=== PATIENT | male | born 1990 | race Caucasian/White ===

== ENCOUNTER 2017-05-27 11:22 | Emergency (ER) | payer OTHER ==
--- NOTE | 2017-05-27 12:08 | XRAY Report ---
EXAM: CHEST RADIOGRAPHY EXAM DATE: 05/27/2017 11:57 AM. CLINICAL HISTORY: Chest pain, worse with deep inspiration. COMPARISON: None. TECHNIQUE: 2 views. FINDINGS: Lungs/Pleura: No focal opacities evident. No pleural effusion. No pneumothorax. Normal volumes. Mediastinum: Heart and mediastinal contours are unremarkable. Other: Negative bony structures IMPRESSION: Negative 2-view chest radiography. [facility] Referring Provider Line: [phone] SITE ID: [id number]
--- NOTE | 2017-05-27 13:14 | ED Physician Documentation ---
History of Present Illness - Stated complaint Stated Complaint: CHEST PX/SOA - Chief complaint Chief Complaint: Cardiac - Additonal information Additional information: hx from pt 26 male onset L sided focal cp this morning 8 AM was just walking around hurts to move breathe and palpate no fever or cough non smoker no leg swelling no recent travel Review of Systems Constitutional: denies: Fever Cardiac: reports: Chest pain / pressure Respiratory: denies: Dyspnea, Cough Musculoskeletal: denies: Extremity pain, Extremity swelling Endocrine: denies: Easy bruising / bleeding Immunocompromised: denies: Immunocompromised PD PAST MEDICAL HISTORY - Past Medical History Respiratory: Asthma - Past Surgical History Past Surgical History: No - Present Medications Home Medications: Ambulatory Orders Medication Instructions Recorded Confirmed Ibuprofen [Motrin] 400 mg PO Q6H PRN #30 tablet 05/27/17 Lidocaine Patch 5% [Lidoderm Patch] 1 each TOP DAILY PRN #10 patch 05/27/17 - Allergies Allergies/Adverse Reactions: Allergies Allergy/AdvReac Type Severity Reaction Status Date / Time Penicillins Allergy Rash Verified 05/27/17 11:44 - Social History Does the pt smoke?: No Smoking Status: Never smoker Does the pt drink ETOH?: No Does the pt have substance abuse?: Yes Substance Use and Type: Marijuana - Immunizations Immunizations are current?: Yes PD ED PE NORMAL - Vitals Vital signs reviewed: Yes - General General: Alert and oriented X 3 - Neck Neck: Supple, no meningeal sign - Cardiac Cardiac: RRR - Respiratory Respiratory: No respiratory distress, Clear bilaterally, Other (TTP ant upper left chest - no rash) - Abdomen Abdomen: Soft, Non tender - Derm Derm: Normal color - Extremities Extremities: No edema, No calf tenderness / cord - Neuro Neuro: Alert and oriented X 3 Results - Vitals Vitals: Vital Signs - 24 hr 05/27/17 11:41 Temperature 37.1 C Heart Rate 85 Respiratory 18 Rate Blood Pressure 122/71 O2 Saturation 98 Oxygen O2 Source Room air - EKG (time done) 1136 Rate: Rate (enter#) Rhythm: NSR Caret: Normal Intervals: Normal [place] Ischemia: Normal ST segments - Rads (name of study) CXR Radiology: See rad report (NACPD) PD MEDICAL DECISION MAKING - ED course ED course: PERC neg Departure - Departure Disposition: 01 Home, Self Care Clinical Impression: Chest wall pain Condition: Good Instructions: ED Chest Pain Costochondritis Prescriptions: Lidocaine Patch 5% [Lidoderm Patch] 1 each TOP DAILY PRN #10 patch PRN Reason: Pain Ibuprofen [Motrin] 400 mg PO Q6H PRN #30 tablet PRN Reason: Pain Comments: The xray is fine - no collapsed lung, normal size heart and aorta The EKG does not suggest a heart attack Since you are so tender to palpate the chest wall, I think this pain is coming fro the muscles and bones of your chest wall - not a heart or lung problem. I recommend using the lidocaine patches (one patch up to 12 hr a day) and an anti-inflammatory such as motrin Follow up with your PMD if not better Return if worse
[2017-05-27] MEDS ORDERED: LIDOCAINE PATCH 5% TOP ONE (13:46)
[2017-05-27] MEDS ORDERED: IBUPROFEN 800 MG TABLET PO ONE (13:47)
[2017-05-27] MEDS: IBUPROFEN 800 MG TABLET PO STA (13:48)
[2017-05-27] MEDS: LIDOCAINE PATCH 5% TOP STA (13:49)
[2017-05-27 13:51] VITALS: BP 124/90
[2017-05-27] MEDS: IBUPROFEN 400 MG TABLET PO STA (13:55)
== END 2017-05-27 14:10 | disposition home or self-care (01) ==
LOC: ED 11:22
DX: R07.89 Other chest pain (principal); J45.909 Unspecified asthma, uncomplicated
CPT/HCPCS: 71020; 93005; 99283; 99284; A9270

== ENCOUNTER 2017-09-07 08:53 | Emergency (ER) | payer OTHER ==
--- NOTE | 2017-09-07 10:00 | ED Physician Documentation ---
PD HPI HEENT - Stated complaint Stated Complaint: TOOTH PX - Chief complaint Chief Complaint: Heent - History obtained from History obtained from: Patient - History of Present Illness Timing - onset: How many days ago (few) Timing - duration: Days (few) Timing - details: Gradual onset, Still present Location: Tooth (had pain at left lower tooth and then it developed small bubble at gum today.) Associated symptoms: No: Fever Similar symptoms before: Has not had sx before Recently seen: Not recently seen Review of Systems Throat: reports: Dental pain / toothache. denies: Sore throat PD PAST MEDICAL HISTORY - Past Medical History Respiratory: Asthma - Past Surgical History Past Surgical History: Yes - Present Medications Home Medications: Ambulatory Orders Medication Instructions Recorded Confirmed Clindamycin HCl [Cleocin HCl] 300 mg PO TID #21 capsule 09/07/17 HYDROcod/ACETAM 5/325 [Deville 5/325] 1 tab PO Q6H PRN #10 tablet 09/07/17 Ibuprofen [Motrin] 600 mg PO TID #30 tab 09/07/17 - Allergies Allergies/Adverse Reactions: Allergies Allergy/AdvReac Type Severity Reaction Status Date / Time Penicillins Allergy Rash Verified 09/07/17 08:57 - Social History Does the pt smoke?: No Smoking Status: Never smoker Does the pt drink ETOH?: No Does the pt have substance abuse?: Yes Substance Use and Type: Marijuana - Immunizations Immunizations are current?: Yes - POLST Patient has POLST: No PD ED PE NORMAL - Vitals Vital signs reviewed: Yes - General General: Alert and oriented X 3, No acute distress, Well developed/nourished - HEENT HEENT: No: Dentition benign (left lower tooth (incisor) without obvious cavity, but gum is inflammed and there is small 1 cm bubble at gum. This is lanced after topical lido for few minutes and got pus out. ) - Neck Neck: Supple, no meningeal sign, No adenopathy Results - Vitals Vitals: Vital Signs - 24 hr 09/07/17 11:15 Temperature 36.9 C Heart Rate 61 Respiratory 18 Rate Blood Pressure 119/74 O2 Saturation 98 Oxygen O2 Source Room air Procedures - Abscess I&D (location) left lower dental gum Preparation: Other (topical viscous lido over the site) Incision: Incised with scalpel, Purulent drainage. No: Irrigated, Packed Other: Pt tolerated well, Antibiotic prescribed PD MEDICAL DECISION MAKING - ED course Complexity details: considered differential (dental abscess of gum and presume tooth apical area. He may have dental insurance (he will check) and had a dentist prior to moving to [place]. ), d/w patient Departure - Departure Disposition: 01 Home, Self Care Clinical Impression: Dental abscess Condition: Stable Record reviewed to determine appropriate education?: Yes Instructions: ED Abscess Dental Follow-Up: [facility] [Provider Group] [facility] [Provider Group] Prescriptions: Clindamycin HCl [Cleocin HCl] 300 mg PO TID #21 capsule HYDROcod/ACETAM 5/325 [Deville 5/325] 1 tab PO Q6H PRN #10 tablet PRN Reason: Pain Ibuprofen [Motrin] 600 mg PO TID #30 tab Comments: Try to get the pus out of the abscess area periodically today to promote drainage. Rinse and gargle with antiseptic a few times a day. I do not know particular dentists in [place], you will just have to call around. I know the [facility] takes most insurances. However if you have dental coverage you just need to call local dentist. For follow-up care you could see the [facility] as well for general care. Currently use ibuprofen a few times a day. Clindamycin 3 times a day for the infection. Add Tylenol or hydrocodone if needed for pain. Discharge Date/Time: 09/07/17 11:29
[2017-09-07] MEDS ORDERED: CLINDAMYCIN 150 MG CAPSULE PO STA (10:11)
[2017-09-07] MEDS ORDERED: LIDOCAINE VISCOUS 2% 100 ML BOTTLE MM STA (10:11)
[2017-09-07] MEDS ORDERED: IBUPROFEN 600 MG TABLET PO STA (10:11)
[2017-09-07] MEDS ORDERED: LIDOCAINE VISCOUS 2% 15 ML UDC MM ONE (10:15)
[2017-09-07] MEDS ORDERED: CLINDAMYCIN 150 MG CAPSULE PO ONE (10:25)
[2017-09-07] MEDS ORDERED: IBUPROFEN 600 MG TABLET PO ONE (10:25)
[2017-09-07] MEDS ORDERED: HYDROcod/ACETAM 5/325 MG TABLET PO STA (10:58)
[2017-09-07] MEDS ORDERED: HYDROcod/ACETAM 5/325 MG TABLET ONE (11:07)
[2017-09-07 11:16] VITALS: BP 119/74
== END 2017-09-07 11:29 | disposition home or self-care (01) ==
LOC: ED 08:53
DX: K04.7 Periapical abscess without sinus (principal); J45.909 Unspecified asthma, uncomplicated
CPT/HCPCS: 41800; 99283; A9270